=== PATIENT | female | born 1960 | race Caucasian/White ===

== ENCOUNTER 2018-06-11 01:47 | Inpatient (IN) | payer OTHER ==
[~2018-06-11] VITALS: Ht 157.5 cm; Wt 64.9 kg
[2018-06-11 01:52] VITALS: Ht 157.5 cm; Wt 64.9 kg
[2018-06-11 02:19] LABS: BASOPHIL % 0.3 % (0-2); PLATELET COUNT 334 x10^3mcL (130-400); RED CELL DISTRIBUTION WIDTH 13.6 % (11.5-14.5)
[2018-06-11 02:27] LABS: CALCIUM 10.7 mg/dL (8.5-10.1); CARBON DIOXIDE 26.9 mmol/L (21-32); CHLORIDE SERUM 105 mmol/L (98-107); CREATININE SERUM 0.8 mg/dL (0.6-1.0); GFR1 > 60 mL/min; GLUCOSE SERUM 117 mg/dL (74-106); POTASSIUM SERUM 3.8 mmol/L (3.5-5.1); SODIUM SERUM 139 mmol/L (136-145)
[2018-06-11 02:32] LABS: ALBUMIN 3.9 g/dL (3.4-5.0); ALKALINE PHOSPHATASE 131 U/L (46-116); ALT/SGPT 50 U/L (14-59); AST/SGOT 20 U/L (15-37); BILIRUBIN TOTAL 0.56 mg/dL (0.20-1.00); TOTAL PROTEIN, SERUM 8.6 g/dL (6.4-8.2)
[2018-06-11 04:41] LABS: MAGNESIUM 2.2 mg/dL (1.8-2.4)
[2018-06-11 04:51] LABS: FREE T4 0.99 ng/dL (0.76-1.46); FREE THYROXINE INDEX 3.2 ug/dL (1.4-4.5); T3 TOTAL 0.96 ng/mL
[2018-06-11 06:24] VITALS: BP 103/56
[2018-06-11 11:26] LABS: microscopic required? YES; urine erythrocyte NEGATIVE (NEGATIVE)
[2018-06-11 11:30] LABS: AMPHETAMINE QUAL UR NONE DETECTED (See below)
[2018-06-11 12:01] VITALS: BP 113/56
[2018-06-11 16:17] VITALS: BP 126/59
[2018-06-11 22:24] VITALS: BP 108/53
[2018-06-12 05:47] VITALS: BP 100/56
[2018-06-12 06:22] LABS: BASOPHIL % 0.4 % (0-2); PLATELET COUNT 283 x10^3mcL (130-400)
[2018-06-12 06:39] LABS: CALCIUM 10.3 mg/dL (8.5-10.1); CARBON DIOXIDE 27.5 mmol/L (21-32); CHLORIDE SERUM 103 mmol/L (98-107); CREATININE SERUM 0.7 mg/dL (0.6-1.0); GFR1 > 60 mL/min; GLUCOSE SERUM 98 mg/dL (74-106); MAGNESIUM 2.2 mg/dL (1.8-2.4); PHOSPHOROUS 2.9 mg/dL (2.5-4.9); SODIUM SERUM 134 mmol/L (136-145)
[2018-06-12 08:34] VITALS: BP 128/62
[2018-06-12 12:07] VITALS: BP 120/60
[2018-06-12] MEDS ORDERED: TOPROL XL25 MG PO (14:12)
[2018-06-12] MEDS ORDERED: GOOD SENSE ASPI81 M3 PO (14:12)
[2018-06-12 15:11] VITALS: BP 120/60
[2018-06-12] MEDS ORDERED: LOSARTAN POTAS100 M1 PO (15:14)
[2018-06-12 15:48] VITALS: BP 113/59
== END 2018-06-12 16:15 | disposition home or self-care (01) | DRG 309 ==
LOC: ED 01:47 → DU 04:08
PROVIDERS: Emergency Medicine; ADMIT Family Medicine
DX: I48.0 Paroxysmal atrial fibrillation (principal); I24.9 Acute ischemic heart disease, unspecified; E83.52 Hypercalcemia; I10 Essential (primary) hypertension; M81.0 Age-related osteoporosis without current pathological fracture; Z68.27 Body mass index [BMI] 27.0-27.9, adult
CPT/HCPCS: 83880; 84439; J2060; J3490; Q0092